=== PATIENT | female | born 1955 | race Caucasian/White ===

== ENCOUNTER 2017-08-09 13:28 | Outpatient (CLI) | payer OTHER ==
[~2017-08-09] VITALS: Ht 154.9 cm; Wt 89.0 kg
[~2017-08-09 13:28] MED LIST: ASPIR 8181 M1 PO; ASPIR-LOW81 MG PO; BENADRYL25 MG PO; CALCIUM + D3 E1 EACH PO; CALCIUM GLUCON650 MG PO; DAILY VALUE1 EACH PO; EXCEDRIN MIGRA1 EAC3 PO; FORTAMET500 M1 PO; GLIMEPIRIDE4 MG PO; GRALISE300 MG PO; HYZAAR 100-21 TABLET PO; IBUPROFEN800 MG PO; K-DUR20 MEQ PO; LEGATRIN PM PO; LEVEMIR FL100 UNIT/1 SC; LOSARTAN-HCTZ1 EAC1 PO; MELATONIN10 M2 PO; METFORMIN HCL500 MG PO; MEVACOR20 MG PO; MIRALAX17 GM PO; MOTRIN800 MG PO; MULTIVITAMIN1 EAC2 PO; NEURONTIN300 MG PO; POTASSIUM CHLO20 ME1 PO; PROBIOTIC1 EAC1 PO; PROMETHAZINE HC25 M1 PO; RANITIDINE HCL150 MG PO; SIMVASTATIN40 MG PO; SINGULAIR10 MG PO; ULTRAM50 MG PO; ZANTAC150 MG PO; [UNRECOGNIZED DRUG - OTHER] PO
[2017-08-09 14:08] LABS: POINT-OF-CARE METER ID UU14107333
[2017-08-09 20:12] VITALS: BP 100/50
[2017-08-09 21:34] LABS: POINT-OF-CARE METER ID UU14162508
[2017-08-09 23:26] VITALS: BP 111/52
[2017-08-10 03:32] VITALS: BP 99/49
[2017-08-10 06:36] LABS: POINT-OF-CARE METER ID UU14162508
[2017-08-10 07:22] LABS: HEMATOCRIT 37.5 % (36.0-46.0); MCH 30.1 PG (29.0-34.0); MCHC 32.8 G/DL (30.0-36.0); MCV 91.7 FL (83-99); MEAN PLAT.VOLUME 9.4 uM^3 (9.5-12.4); PLATELET COUNT 152 K/uL (156-360); RBC DIS.WIDTH-CV 13.6 % (11.8-14.6); RBC DIS.WIDTH-SD 46.2 % (39-53); RED BLOOD COUNT 4.09 M/uL (3.80-5.20); WHITE BLOOD COUNT 4.6 K/uL (4.1-10.2)
[2017-08-10 07:43] LABS: ANION GAP 8 MEQ/L (2-14); CHLORIDE 103 MEQ/L (99-109); GFR ESTIMATE (CALCULATED) > 59 mL/min/; GLUCOSE 118 mg/dL (70-99); POTASSIUM 3.7 MEQ/L (3.7-5.4); SAMPLE HEMOLYSIS CHECK 0; SAMPLE ICTERIC CHECK 0; SAMPLE LIPEMIA CHECK 0; SODIUM 142 MEQ/L (136-147); UREA NITROGEN (BUN) 9 mg/dL (9-23)
[2017-08-10 08:24] VITALS: BP 104/56
[2017-08-10 12:39] LABS: POINT-OF-CARE METER ID UU14162508
== END 2017-08-10 15:33 | disposition home or self-care (01) ==
LOC: AMB 13:28 → 2SOUTH 14:00 → ENRESERV 17:23 → 2EAST 19:29
PROVIDERS: Internal Medicine
DX: K29.70 Gastritis, unspecified, without bleeding (principal); K31.7 Polyp of stomach and duodenum; I85.00 Esophageal varices without bleeding; C85.90 Non-Hodgkin lymphoma, unspecified, unspecified site; I10 Essential (primary) hypertension; E78.5 Hyperlipidemia, unspecified; M51.26 Other intervertebral disc displacement, lumbar region; E11.43 Type 2 diabetes mellitus with diabetic autonomic (poly)neuropathy; K31.84 Gastroparesis; Z79.84 Long term (current) use of oral hypoglycemic drugs; Z92.21 Personal history of antineoplastic chemotherapy; Z79.82 Long term (current) use of aspirin
CPT/HCPCS: 74241; 80048; 82948; 85027; 85730; 88305; 88342 TC; 93005; C9113; G0378; J0295; J1170; J1815; J2250; J2270; J2405; J3010; J7042; J7050; S0164